=== PATIENT | female | born 1965 | race African-American/Black ===

== ENCOUNTER 2021-01-24 20:17 | Emergency (ER) | payer OTHER ==
[2021-01-24 20:32] VITALS: BMI 17.5
[2021-01-24] MEDS ORDERED: ACETAMINOPHEN 500 MG TABLET (FP) PO ONE (21:14)
[2021-01-24] MEDS ORDERED: ACETAMINOPHEN 500 MG TABLET (FP) ONE (21:34)
[2021-01-24 22:35] VITALS: BP 157/73; PULSE 69; TEMP 98.1
== END 2021-01-24 22:38 | disposition home or self-care (01) ==
LOC: JER 20:17
DX: M71.21 Synovial cyst of popliteal space [Baker], right knee (principal)
CPT/HCPCS: 93971-TC; 99284-25